=== PATIENT | female | born 1995 | race Caucasian/White ===

== ENCOUNTER → 2021-04-20 10:13 | Outpatient (CLI) | payer OTHER, SELFPAY ==
[2021-04-25 20:07] LABS: Chlamydia By Nucleic Acid AMP Positive (Negative)
[2021-04-25 20:24] LABS: Gonococcus By Nucleic Acid AMP Negative (Negative)
[2021-04-28 14:05] LABS: HPV APTIMA, High Risk Positive (Negative); HPV Reflexed? YES, CHARGE PATIENT
== END ==
PROVIDERS: Visit Provider Obstetrics & Gynecology
DX: Z12.4 Encounter for screening for malignant neoplasm of cervix (principal); Z11.3 Encounter for screening for infections with a predominantly sexual mode of transmission
CPT/HCPCS: 87491; 87591; 87624; 88175; G0145

== ENCOUNTER → 2021-05-17 | Outpatient (CLI) | payer OTHER, SELFPAY ==
--- NOTE | 2021-05-17 | IMM_PTH ---
PATIENT: SAY FLORES LOC: [facility] U#:[id number] AGE/SX: 26/F ROOM: RE05/17/[address]: Dr. Esteban Johnston MD : 1995 BED: DIS: 05/17/2021 SPEC #: [id number] RECD: 05/21/21 14:13 STATUS: GREGORIO REQ #: [id number] THIAGO: 05/17/21 00:[address]: Esteban Johnston DEPT: IMMUNOHISTOCHEMISTRY RECD BY: Kathi Shay Tissues: A - Uterine cervix, NOS Procedures: p16 (initial) KI-67 (add) PHYSICIAN & INSTITUTION [place] [id number] SPECIMEN INFORMATION: Tissue Source: A ? Cervical biopsy Clinical Info: ASCUS, positive HR-HPV, mild dysplasia Specimen Number: [id number] CPT code: 61854, 55307 METHODOLOGY: Deparaffinized sections of prefer/formalin-fixed tissue or PAP/DQ stained slides are incubated with monoclonal/polyclonal antibodies/oligonucleotide probes. Localization is made via biotin free immunoperoxidase method. Appropriate controls are performed and reacted as expected. Results on target cell population are indicated in the following table: RESULTS: ANTIBODY / CLONE RESULT Block A P16 (E6H4) positive, focal, patchy Ki-67 (30-9) negative These tests were developed and their performance characteristics determined by [facility]. They may not have been cleared or approved by the [place]. Food and Drug Administration. The FDA has determined that such clearance or approval is not necessary. The above immunohistochemical/dualISH markers are ordered and reviewed by the Pathologist. INTERPRETATION: A. Cervical biopsy: Focal changes of HPV. AM:valerio 05/22/2021
--- NOTE | 2021-05-17 | CER_PTH ---
PATIENT: SAY FLORES LOC: [facility] U#:[id number] AGE/SX: 26/F ROOM: RE05/17/[address]: Dr. Esteban Johnston MD : 1995 BED: DIS: 05/17/2021 SPEC #: [id number] RECD: 05/18/21 10:28 STATUS: GREGORIO WAGNER #: [id number] THIAGO: 05/17/21 00:[address]: Esteban Johnston DEPT: SURGICAL PATHOLOGY RECD BY: Garo Garcia Tissues: A - Uterine cervix, NOS B - Endocervical Procedures: Surgery Specimen Level IV HEADER OPERATION: Colposcopy PRE-OP DIAGNOSIS: ASCUS, positive HR-HPV, mild dysplasia TISSUE SUBMITTED: A ? Cervical biopsy, B - ECC MICROSCOPIC DIAGNOSIS A. Cervix, biopsy: Focal HPV change present. See comment. B. Endocervix, curettings: Strips of benign superficial endocervix. No evidence of dysplasia. AM:valerio 05/21/2021 COMMENT A. Results from immunohistochemistry ([id number]) for surrogate HPV marker (p16) will be reported separately. MICROSCOPIC DESCRIPTION Slides are reviewed. GROSS DESCRIPTION A - Received in fixative is one container labeled with the patient's name and designated cervical biopsy. The specimen consists of one irregular fragment of light juares soft tissue that measures 0.4 x 0.3 x 0.1 cm. The specimen is totally submitted in one cassette. B - Received in fixative is one container labeled with the patient's name and designated ECC. The specimen consists of a scant amount of soft tissue. The specimen is totally submitted for cell block preparation. / LION:valerio 05/18/21 TC:3 CPT: 29020 x2
== END | disposition home or self-care (01) ==
LOC: LABSPEC 05-18 09:02
PROVIDERS: Visit Provider Obstetrics & Gynecology
DX: R87.610 Atypical squamous cells of undetermined significance on cytologic smear of cervix (ASC-US) (principal)
CPT/HCPCS: 88305; 88341; 88342